=== PATIENT | male | born 1965 | race Caucasian/White ===

== ENCOUNTER → 2018-02-04 07:29 | Outpatient (CLI) | payer MEDICARE | END | disposition home or self-care (01) | LOC: D.CT 07:29 | DX: K63.3 Ulcer of intestine (principal); R10.9 Unspecified abdominal pain ==

== ENCOUNTER → 2018-02-11 11:27 | Outpatient (CLI) | payer MEDICARE | END | disposition home or self-care (01) | LOC: D.CT 11:27 | DX: R93.8 Abnormal findings on diagnostic imaging of other specified body structures (principal); J92.9 Pleural plaque without asbestos; F17.200 Nicotine dependence, unspecified, uncomplicated ==

== ENCOUNTER 2018-03-16 11:11 | Inpatient (IN) | payer MEDICARE ==
[~2018-03-16] VITALS: Ht 182.9 cm; Wt 117.0 kg
--- NOTE | ~2018-03-16 | HP ---
PATIENT: ОЛЬГА IQBAL MEDICAL RECORD: [id number] ACCOUNT: [id number] LOCATION:D.MS [address] : 63 ADMISSION DATE: 03/16/18 PCP: ASAD CARTER MD HISTORY AND PHYSICAL EXAMINATION DATE OF ADMISSION: 03/16/2018 CHIEF COMPLAINT: Fever. HISTORY OF PRESENT ILLNESS: A 52-year-old gentleman states that yesterday he developed some low-grade fever and had chills this morning. He awakened with fever up to 106. He is complaining of having chills and aches. He has had no cough and no congestion. The patient presented to the Emergency Room, where he was felt to have right lower lobe pneumonia. The patient also has rheumatoid arthritis, is on immunosuppressive medications. It was felt the patient should be admitted. PAST MEDICAL HISTORY: Significant in that he has had hypertension and hyperlipidemia. He has had rheumatoid arthritis and chronic low back pain. He has had L4-L5 fusion. He has also had fusion in [place]. He has had hardware removed in 2014. FAMILY HISTORY: Father of lung cancer at 55. Mother had heart disease as well as gout and rheumatoid arthritis. MEDICATIONS: Currently include allopurinol 300 mg one p.o. daily, Bystolic 10 mg one p.o. daily, folic acid one p.o. daily, gabapentin 300 mg t.i.d., Lopid 600 mg p.o. b.i.d., lisinopril 20/12.5 one p.o. daily, methotrexate 2.5 seven every Saturday, omeprazole 20 mg once a day, oxycodone 15 mg one t.i.d. p.r.n., prednisone 5 mg once a day, and vitamin D3 2000 international units once a day. ALLERGIES: He has no known drug allergies. SOCIAL HISTORY: The patient is unemployed, educated through the 12th grade. He is currently . He has been a 2 pack per day smoker since age 31. He denies any ethanol use or abuse. REVIEW OF SYSTEMS: GENERAL: He denies any headache, seizure, or syncope. He denies change in visual or auditory acuity. PULMONARY: He denies any cough, congestion, history of TB, asthma, or bronchitis. CARDIOVASCULAR: He has had no chest pain, palpitation, PND, or orthopnea. GASTROINTESTINAL: No chronic nausea, vomiting, melena, or hematochezia. GENITOURINARY: No urinary frequency or dysuria. PHYSICAL EXAMINATION: VITAL SIGNS: Today, his temperature is 97.9, pulse 95, respirations 18, and blood pressure 129/70. HEENT: Head is normocephalic. No lesions. Ears; TMs are clear. Eyes; pupils are equal, round, and reactive to light. Extraocular movements are intact. Nasal cavity, oral cavity, and oropharynx clear. NECK: Supple. There is no adenopathy. HEART: Regular rate and rhythm without any murmurs, gallops, or rubs. LUNGS: He has some rales in right lower lung. No wheezes. HISTORY AND PHYSICAL [id number] IRONS,ОЛЬГА DELL ABDOMEN: Soft. Bowel sounds positive. No organomegaly. EXTREMITIES: Upper and lower extremities have good strength and good range of motion. LABORATORY DATA AND DIAGNOSTIC DATA: The patient had a chest x-ray today showing patchy opacity in the lung bases, right more severe than left. White count is 13,000, hemoglobin 9.7, hematocrit is 29, MCV is elevated at 109, MCH is 36, and platelet count is 154. Sodium is 138, potassium 3.8, chloride is 103, CO2 is 21, BUN is 14, and creatinine 1.1. C-reactive protein is elevated at 11.2. ProBNP is 462. ASSESSMENT: Febrile illness, felt to be secondary to pneumonia; history of hypertension; hyperlipidemia; and anemia, etiology unknown at the present time. PLAN: The patient will be admitted. We will get serial H&Hs. Blood cultures will be obtained. We will also check for any tick-borne illnesses. He will be started on Rocephin 1 gram q. 24 hours, Zithromax 500 mg IV q. 24 hours, updraft therapy, and Lovenox for DVT precautions. IV hydration. Continue to evaluate. TRANSINT:[id number] Voice Confirmation ID: [id number] DOCUMENT ID: [id number] ASAD CARTER MD at 0657 CC: [id number] DICTATION DATE: 03/16/18 1324 TRANSFER CAR OPERATOR DRIER: 03/16/18 1709 ADM IN [facility] [id number] [place] [address]
--- NOTE | ~2018-03-16 | MORECARE ---
CASE MANAGEMENT DISCHARGE SUMMARY PATIENT: ОЛЬГА IQBAL UNIT: [id number] ADM DATE: 03/16/18 AGE: 52 : 63 SEX: M ROOM/BED: D.2205 AUTHOR: MIGUELDOC PHYSICIAN: REFERRING PHYSICIAN: ASAD CARTER MD DATE OF SERVICE: 03/18/18 Discharge Plan Patient Name: ОЛЬГА IQBAL Facility: [facility]:[place] : 1965 Planned Disposition: Home Anticipated Discharge Date: Discharge Date: Expected LOS: Initial Reviewer: [id number] Initial Review Date: 03/16/2018 Generated: 03/18/18 10:10 am Comments DCP- Discharge Planning Updated by [id number]: Barbara Savage on 03/18/18 8:[address] Patient Name: ОЛЬГА IQBAL Admission Status: ER Accout number: [id number] Admission Date: 03-16-2018 : 1965 Admission Diagnosis: Attending: ASAD CARTER Current LOS: 2 Anticipated DC Date: Planned Disposition: Home Primary Insurance: [facility] MEDICARE SOLUTIONS Discharge Planning Comments: CM MET WITH PATIENT TO ASSESS DISCHARGE PLANNING NEEDS. PATIENT LIVES IN [facility] WITH HIS WHERE HE PLANS TO RETURN TODAY/ HE STATES THAT HE IS INDEPENDENT WITH HIS CARE AT HOME. HE DOES HAVE A WALKER THAT HE USES AT TIMES. HE DENIES ANY HOME HELATH AND DOES NOT WANT ANY AT DISCHARGE. HE STATES HIS HOME IS SAFE TO RETURN CM WILL CONTINUE TO FOLLOW AND ASSIST WITH DC PLANNING NEEDED Clerk General: Barbara Savage DCPIA - Discharge Planning Initial Assessment Updated by [email or web address]: Barbara Savage on 03/18/18 9:06 am * Is the patient Alert and Oriented? Yes * How many steps to enter\exit or inside your home? * PCP EMMA * Pharmacy [facility] * Preadmission Environment Home with Family * ADLs Independent * Equipment Walker * List name and contact numbers for known caregivers / representatives who currently or will assist patient after discharge: ASA () [phone] * Verbal permission to speak to the caregivers and representatives has been obtained from the patient. N/A * Community resources currently utilized None * Additional services required to return to the preadmission environment? No * Can the patient safely return to the preadmission environment? Yes * Has this patient been hospitalized within the prior 30 days at any hospital? No Patient Name: ОЛЬГА IQBAL Page [id number] at 0910 All edits/amendments must be made on the electronic document DICTATION DATE: 03/18/18909 HEAD ATHLETIC TRAINER: MATHEUS 03/18/18909 RPT#: [id number] DC DATE: STATUS: ADM IN [facility] [address] [place] [address] END OF REPORT
--- NOTE | ~2018-03-16 | MORECARE ---
CASE MANAGEMENT DISCHARGE SUMMARY PATIENT: ОЛЬГА IQBAL UNIT: [id number] ADM DATE: 03/16/18 AGE: 52 : 63 SEX: M ROOM/BED: D.2205 AUTHOR: MIGUEL,DOC PHYSICIAN: REFERRING PHYSICIAN: ASAD CARTER MD DATE OF SERVICE: 03/24/18 Discharge Plan Patient Name: ОЛЬГА IQBAL Facility: [facility]:[place] : 1965 Planned Disposition: Home Anticipated Discharge Date: Discharge Date: 03/18/2018 Expected LOS: 0 Initial Reviewer: [email or web address] Initial Review Date: 03/16/2018 Generated: 03/24/18 11:11 am Comments DCP- Discharge Planning Updated by [email or web address]: Barbara Savage on 03/18/18 8:[address] Patient Name: ОЛЬГА IQBAL Admission Status: ER Accout number: [id number] Admission Date: 03-16-2018 : 1965 Admission Diagnosis: Attending: ASAD CARTER Current LOS: 2 Anticipated DC Date: Planned Disposition: Home Primary Insurance: [facility] MEDICARE SOLUTIONS Discharge Planning Comments: CM MET WITH PATIENT TO ASSESS DISCHARGE PLANNING NEEDS. PATIENT LIVES IN [facility] WITH HIS WHERE HE PLANS TO RETURN TODAY/ HE STATES THAT HE IS INDEPENDENT WITH HIS CARE AT HOME. HE DOES HAVE A WALKER THAT HE USES AT TIMES. HE DENIES ANY HOME HELATH AND DOES NOT WANT ANY AT DISCHARGE. HE STATES HIS HOME IS SAFE TO RETURN CM WILL CONTINUE TO FOLLOW AND ASSIST WITH DC PLANNING NEEDED Helminthology Teacher: Barbara Savage DCPIA - Discharge Planning Initial Assessment Updated by [email or web address]: Barbara Savage on 03/18/18 9:06 am * Is the patient Alert and Oriented? Yes * How many steps to enter\exit or inside your home? * PCP EMMA * Pharmacy [facility] * Preadmission Environment Home with Family * ADLs Independent * Equipment Walker * List name and contact numbers for known caregivers / representatives who currently or will assist patient after discharge: ASA () [phone] * Verbal permission to speak to the caregivers and representatives has been obtained from the patient. N/A * Community resources currently utilized None * Additional services required to return to the preadmission environment? No * Can the patient safely return to the preadmission environment? Yes * Has this patient been hospitalized within the prior 30 days at any hospital? No Last DP export: 03/18/18 8:10 Patient Name: ОЛЬГА IQBAL Page [phone] at 1011 All edits/amendments must be made on the electronic document DICTATION DATE: 03/24/18 1011 BUCKLE SORTER: MATHEUS 03/24/18 1011 RPT#: [id number] DC DATE:03/18/18 STATUS: DIS IN [facility] [address] [place] [address] END OF REPORT
[2018-03-16] MEDS ORDERED: GEMFIBROZIL600 MG (11:15)
[2018-03-16] MEDS ORDERED: BYSTOLIC10 MG PO (11:15)
[2018-03-16] MEDS ORDERED: PRINZIDE 20/12.1 TA1 PO ×2 (11:15→14:03)
[2018-03-16] MEDS ORDERED: OMEPRAZOLE20 M1 PO (11:15)
[2018-03-16] MEDS ORDERED: VITAMIN D250000 UNIT PO (11:16)
[2018-03-16] MEDS ORDERED: NEURONTIN 300300 MG PO (11:16)
[2018-03-16] MEDS ORDERED: ZYLOPRIM300 MG PO (11:16)
[2018-03-16] MEDS ORDERED: OXYCONTIN15 MG PO (11:17)
[2018-03-16 11:41] LABS: BASOPHILS 0.1 % (0-2); EOSINOPHILS 0.2 % (0-7); HEMATOCRIT 29.1 % (42.0-54.0); HEMOGLOBIN 9.7 g/dL (13.5-17.5); IMMATURE GRANULOCYTES 0.8 % (0-5); LYMPHOCYTES 4.8 % (15-50); MCH 36.3 pg (26.0-34.0); MCHC 33.3 g/dL (31.0-37.0); MEAN PLATELET VOLUME 10.2 fL (7.4-10.4); MONOCYTES 12.7 % (2-11); NEUTROPHILS 81.4 % (40-80); PLATELET COUNT 154 10x3/uL (130-400); RBC 2.67 10x6/uL (4.20-6.10); RDW 16.5 % (11.5-14.5)
[2018-03-16 12:07] LABS: ALBUMIN 3.5 g/dL (3.4-5.0); ALKALINE PHOSPHATASE 47 U/L (46-116); ALT (SGPT) 15 U/L (10-68); BILIRUBIN - TOTAL 0.91 mg/dL (0.2-1.3); CALC OSMOLALITY 276 mosm/kg (275-300); CALCIUM 8.8 mg/dL (8.5-10.1); CARBON DIOXIDE 21.1 mmol/L (21.0-32.0); CHLORIDE - SERUM 103 mmol/L (98-107); CREATININE - SERUM 1.1 mg/dL (0.6-1.3); GLUCOSE 103 mg/dL (74-106); POTASSIUM - SERUM 3.8 mmol/L (3.5-5.1); PROTEIN - SERUM 6.7 g/dL (6.4-8.2); SODIUM 138 mmol/L (136-145); UREA NITROGEN 14 mg/dL (7-18); eGFR NON AFRICAN AMERICAN 74 mL/min (90-120)
[2018-03-16 12:14] LABS: C-REACTIVE PROTEIN 11.2 mg/dL (0.0-0.9); CREATINE KINASE 32 UL (21-232); LIPASE 167 U/L (73-393); PRO BNP 462 pg/mL (0-125); TROPONIN-I < 0.017 ng/mL (0.000-0.060)
[2018-03-16 12:15] VITALS: BP 122/88
[2018-03-16 12:39] LABS: APPEARANCE CLEAR (CLEAR); BILIRUBIN NEGATIVE (NEGATIVE); COLOR STRAW (YELLOW); GLUCOSE NEGATIVE (NEGATIVE); KETONE NEGATIVE (NEGATIVE); NITRITE NEGATIVE (NEGATIVE); PROTEIN NEGATIVE (NEGATIVE); SPECIFIC GRAVITY 1.005 (1.005-1.020); UROBILINOGEN NORMAL (NORMAL)
[2018-03-16] MEDS ORDERED: BYSTOLIC5 MG PO (13:57)
[2018-03-16] MEDS ORDERED: HYDROCHLOROTH12.5 M1 PO (14:03)
[2018-03-16] MEDS ORDERED: FOLATE0.4 MG PO (14:07)
[2018-03-16] MEDS ORDERED: PREDNISONE5 MG PO (14:07)
[2018-03-16 14:10] VITALS: BP 132/73; BMI 35.0
[2018-03-16 14:13] LABS: % SATURATION 3 % (15-55); IRON 11 ug/dl (35-150); TOTAL IRON BIND CAPACITY 341 ug/dl (260-445); UNSAT IRON BIND CAPACITY 330 ug/dl (150-375)
[2018-03-16 15:23] VITALS: BP 132/73
[2018-03-16 19:56] VITALS: BP 112/60
[2018-03-17] VITALS: BP 104/64
[2018-03-17 04:00] VITALS: BP 104/64
[2018-03-17 04:09] LABS: BASOPHILS 0 % (0-2); EOSINOPHILS 0.1 % (0-7); HEMATOCRIT 25.3 % (42.0-54.0); HEMOGLOBIN 8.3 g/dL (13.5-17.5); IMMATURE GRANULOCYTES 0.8 % (0-5); MCH 35.9 pg (26.0-34.0); MCHC 32.8 g/dL (31.0-37.0); MCV 109.5 fL (80.0-100.0); MEAN PLATELET VOLUME 9.9 fL (7.4-10.4); MONOCYTES 10.2 % (2-11); NEUTROPHILS 76.9 % (40-80); PLATELET COUNT 135 10x3/uL (130-400); RBC 2.31 10x6/uL (4.20-6.10); RDW 16.3 % (11.5-14.5)
[2018-03-17 04:10] LABS: WBC 7.8 10x3/uL (4.8-10.8)
[2018-03-17 04:18] LABS: ANION GAP 16.2 mmol/L (8-16); CALCIUM 8.3 mg/dL (8.5-10.1); CARBON DIOXIDE 22.6 mmol/L (21.0-32.0); CREATININE - SERUM 1.1 mg/dL (0.6-1.3); POTASSIUM - SERUM 3.8 mmol/L (3.5-5.1)
[2018-03-17 08:52] VITALS: BP 132/69
[2018-03-17 12:32] VITALS: BP 139/82
[2018-03-17 12:43] VITALS: Ht 182.9 cm; Wt 117.0 kg
[2018-03-17 16:39] VITALS: BP 125/71
[2018-03-17 21:25] VITALS: BP 145/80
[2018-03-18 04:36] VITALS: BP 113/46
[2018-03-18 04:47] LABS: BASOPHILS 0.2 % (0-2); EOSINOPHILS 2.7 % (0-7); HEMATOCRIT 29.6 % (42.0-54.0); IMMATURE GRANULOCYTES 1.3 % (0-5); LYMPHOCYTES 26.6 % (15-50); MCH 35.6 pg (26.0-34.0); MCHC 33.8 g/dL (31.0-37.0); MEAN PLATELET VOLUME 10.2 fL (7.4-10.4); MONOCYTES 5.2 % (2-11); RDW 17.7 % (11.5-14.5)
[2018-03-18 04:56] LABS: MCV 105.3 fL (80.0-100.0); PLATELET COUNT 168 10x3/uL (130-400); RBC 2.81 10x6/uL (4.20-6.10); WBC 4.8 10x3/uL (4.8-10.8)
[2018-03-18 04:58] LABS: CALC OSMOLALITY 278 mosm/kg (275-300); CALCIUM 8.4 mg/dL (8.5-10.1); CARBON DIOXIDE 27.7 mmol/L (21.0-32.0); CHLORIDE - SERUM 105 mmol/L (98-107); GLUCOSE 95 mg/dL (74-106); POTASSIUM - SERUM 3.8 mmol/L (3.5-5.1); SODIUM 140 mmol/L (136-145); UREA NITROGEN 13 mg/dL (7-18); eGFR NON AFRICAN AMERICAN 83 mL/min (90-120)
[2018-03-18] MEDS ORDERED: FERROUS SULFAT325 MG PO (06:56)
[2018-03-18] MEDS ORDERED: LEVAQUIN750 MG PO (06:56)
[2018-03-18] MEDS ORDERED: DOXYCYCLINE HY100 M2 PO (06:56)
[2018-03-18 08:23] LABS: FOLATE (FOLIC ACID) - SERUM >20.0 ng/mL (>3.0)
[2018-03-18 08:26] VITALS: BP 124/77
[2018-03-19 14:23] LABS: EHRLICHIA CHAFF IGG Negative (Neg:<1:64); EHRLICHIA CHAFF IGM Negative (Neg:<1:20); HGE IGG TITER Negative (Neg:<1:64); HGE IGM TITER Negative (Neg:<1:20)
[2018-03-20 16:13] LABS: RMSF IGM 0.19 index (0.00-0.89)
[2018-03-21 09:18] LABS: F. TULARENSIS - IGG Negative (()); F. TULARENSIS - IGM Negative (())
== END 2018-03-18 09:22 | disposition home or self-care (01) | DRG 195 ==
LOC: D.ER 11:11 → D.EDHOLD 12:44 → D.MS 12:44
PROVIDERS: Family Medicine
DX: J18.9 Pneumonia, unspecified organism (principal); I10 Essential (primary) hypertension; K21.9 Gastro-esophageal reflux disease without esophagitis; M06.9 Rheumatoid arthritis, unspecified; D50.9 Iron deficiency anemia, unspecified; F17.210 Nicotine dependence, cigarettes, uncomplicated

== ENCOUNTER 2018-08-29 21:06 | Inpatient (IN) | payer MEDICARE ==
[~2018-08-29] VITALS: Ht 182.9 cm; Wt 122.7 kg
[~2018-08-29 21:06] MED LIST: BYSTOLIC10 MG PO; BYSTOLIC5 MG PO; DOXYCYCLINE HY100 M2 PO; FERROUS SULFAT325 MG PO; FOLATE0.4 MG PO; GEMFIBROZIL600 MG PO; HYDROCHLOROTH12.5 M1 PO; LEVAQUIN750 MG PO; NEURONTIN 300300 MG PO; OMEPRAZOLE20 M1 PO; OXYCONTIN15 MG PO; PREDNISONE5 MG PO; PRINZIDE 20/12.1 TA1 PO; VITAMIN D250000 UNIT PO; ZYLOPRIM300 MG PO
[2018-08-29] MEDS ORDERED: CRESTOR10 MG PO (21:15)
[2018-08-29 21:40] LABS: BASOPHILS 0.1 % (0-2); EOSINOPHILS 0.8 % (0-7); HEMOGLOBIN 9.6 g/dL (13.5-17.5); IMMATURE GRANULOCYTES 0.9 % (0-5); LYMPHOCYTES 7.3 % (15-50); MCH 30.5 pg (26.0-34.0); MCHC 34.3 g/dL (31.0-37.0); MCV 88.9 fL (80.0-100.0); MONOCYTES 10.8 % (2-11); NEUTROPHILS 80.1 % (40-80); PLATELET COUNT 198 10x3/uL (130-400); RBC 3.15 10x6/uL (4.20-6.10); RDW 15.7 % (11.5-14.5); WBC 12.9 10x3/uL (4.8-10.8)
[2018-08-29 22:00] VITALS: BP 79/40
[2018-08-29 22:09] LABS: ALBUMIN 3.2 g/dL (3.4-5.0); ALKALINE PHOSPHATASE 51 U/L (46-116); ALT (SGPT) 12 U/L (10-68); AMYLASE - SERUM 66 U/L (25-115); BILIRUBIN - TOTAL 0.59 mg/dL (0.2-1.3); CALC OSMOLALITY 277 mosm/kg (275-300); CALCIUM 8.7 mg/dL (8.5-10.1); CARBON DIOXIDE 14.4 mmol/L (21.0-32.0); CHLORIDE - SERUM 96 mmol/L (98-107); CREATININE - SERUM 5.7 mg/dL (0.6-1.3); GLUCOSE 111 mg/dL (74-106); LIPASE 283 U/L (73-393); POTASSIUM - SERUM 4.4 mmol/L (3.5-5.1); PROTEIN - SERUM 7.6 g/dL (6.4-8.2); SODIUM 128 mmol/L (136-145); UREA NITROGEN 68 mg/dL (7-18); eGFR NON AFRICAN AMERICAN 11 mL/min (90-120)
[2018-08-29 22:15] VITALS: BP 85/46
[2018-08-29 22:16] LABS: TROPONIN-I < 0.017 ng/mL (0.000-0.060)
[2018-08-29 22:30] VITALS: BP 95/49
--- NOTE | 2018-08-29 22:30 | NUR ---
URINE SENT TO LAB
--- NOTE | 2018-08-29 22:37 | NUR ---
PT TO RADIOLOGY.
[2018-08-29 22:39] LABS: APPEARANCE CLEAR (CLEAR); BILIRUBIN NEGATIVE (NEGATIVE); COLOR YELLOW (YELLOW); GLUCOSE NEGATIVE (NEGATIVE); KETONE NEGATIVE (NEGATIVE); NITRITE NEGATIVE (NEGATIVE); PROTEIN TRACE mg/dL (NEGATIVE); UROBILINOGEN NORMAL (NORMAL)
--- NOTE | 2018-08-29 22:51 | NUR ---
PT RETURNED FROM RADIOLOGY.
--- NOTE | 2018-08-29 23:03 | NUR ---
PT RESTING EYES CLOSED, RR EVEN AND UNLABORED, VSS. FAMILY AT BEDSIDE. WILL CONTINUE TO MONITOR.
[2018-08-29 23:10] VITALS: BP 97/46
[2018-08-30] VITALS: BP 90/44
--- NOTE | 2018-08-30 01:32 | NUR ---
RECEIVED FROM ER, PT IS A&O X4, UPDATED MEDS, PT STATES HE TAKE B12 INJECTIONS AND HUMIRA INJECTIONS, UNABLE TO FIND, AT BEDSIDE, BED IS LOW, SRX2, CALL LIGHT IN REACH, WILL CONTINUE PLAN OF CARE
[2018-08-30] MEDS ORDERED: HUMIRA (01:53)
[2018-08-30] MEDS ORDERED: B-12 (01:54)
--- NOTE | 2018-08-30 02:39 | NUR ---
I have reviewed this patient and I concur with the Shift Assessment completed by the Licensed Practical Nurse today this shift.
[2018-08-30 02:46] VITALS: BP 138/72; BP 95/59; BMI 34.0; BMI 35.3
[2018-08-30 04:00] VITALS: BP 91/48
--- NOTE | 2018-08-30 07:00 | NUR ---
RECEIVED REPORT. ASSUMED CARE OF PATIENT. CALL LIGHT WITHIN REACH. PATIENT ALERT/ORIETNED. IV FLUIDS INFUSING TO LEFT FOREARM ORDERED. RESP EVEN AND UNLABORED. PATIENT COMPLAINS OF CHRONIC BACK PAIN. NO DISTRESS. PATIENT AT BEDSIDE.
--- NOTE | 2018-08-30 07:49 | NUR ---
MEDICATED FOR BACK PAIN AT THIS TIME. PATIENT HAS HAD 3 BACK SURGERIES AND LYING IN THIS BED IS HURTING HIM. CALL LIGHT WITHIN REACH. INSTRUCTED TO CALL, USE CALL LIGHT TO PREVENT FALLS OR INJURIES. VERBALIZED UNDERSTANDING. NO DISTRESS. IV FLUIDS INFUSING AT 125
[2018-08-30 09:25] LABS: BASOPHILS 0.1 % (0-2); HEMATOCRIT 23.1 % (42.0-54.0); HEMOGLOBIN 7.9 g/dL (13.5-17.5); IMMATURE GRANULOCYTES 0.7 % (0-5); LYMPHOCYTES 8.6 % (15-50); MCH 30.5 pg (26.0-34.0); MCHC 34.2 g/dL (31.0-37.0); MCV 89.2 fL (80.0-100.0); MEAN PLATELET VOLUME 9.1 fL (7.4-10.4); MONOCYTES 7.6 % (2-11); PLATELET COUNT 187 10x3/uL (130-400); RBC 2.59 10x6/uL (4.20-6.10); RDW 15.8 % (11.5-14.5)
[2018-08-30 09:29] LABS: WBC 9.5 10x3/uL (4.8-10.8)
[2018-08-30 09:39] LABS: ANION GAP 20.5 mmol/L (8-16); CALCIUM 7.8 mg/dL (8.5-10.1); CARBON DIOXIDE 14.3 mmol/L (21.0-32.0); POTASSIUM - SERUM 3.8 mmol/L (3.5-5.1)
[2018-08-30 09:51] VITALS: BP 82/49
--- NOTE | 2018-08-30 10:19 | NUR ---
SCDS NOT APPLIED PATIENT IS VERY FREQUENTLY GETTING OOB TO USE THE RESTROOM. URINAL PROVIDED AND AT BEDSIDE. PATIENT HAS DIARRHEA.
--- NOTE | 2018-08-30 11:57 | NUR ---
FRESH ICE WATER AND JUICE PROVIDED AT THIS TIME. PATIENT SITTING UP IN BED. NOON MEAL BEING SERVED AT THIS TIME. PATIENT AT BEDSIDE. NO DISTRESS.
[2018-08-30 13:11] VITALS: BP 89/50
--- NOTE | 2018-08-30 15:35 | NUR ---
FRESH ICE WATER AND JUICE PROVIDED. PATIENTS FAMILY AT BEDSIDE. STOOL SAMPLE SUBMITTED TO LAB. PATIENT URINE OUTPUT IS INCREASING. CALL LIGHT WITHIN REACH. NO DISTRESS.
--- NOTE | 2018-08-30 17:39 | NUR ---
MEDICATED FOR PAIN AT THIS TIME. NO DISTRESS. CONSUMED PM MEAL. CALL LIGHT WITHIN REACH. INSTRUCTED PATIENT TO CALL BEFORE GETTING OOB. PATIENTS AT BEDSIDE.
[2018-08-30 17:40] VITALS: BP 90/83
--- NOTE | 2018-08-30 19:54 | NUR ---
RECIEVED LAYING IN BED WITH EYES OPEN AND TV ON. SPOUSE AT BEDSIDE. ALERT AND ORIENTED X4. UP AD MAGDIEL TO TOILET. STATES APPETITE GOOD AND ATE 100% OF ALL MEALS TODAY. IV TO LEFT FA WITH NS @ 125 INFUSING. NO REDNESS OR SWELLING TO SITE. SCABS TO RIGHT THUMB AND TOP OF RIGHT HAND WITH NO REDNESS OR DRAINAGE. DENIES ANY NEEDS AT THIS TIME.
[2018-08-31 00:20] VITALS: BP 109/65
[2018-08-31 00:29] VITALS: BP 94/50
[2018-08-31 04:53] LABS: BASOPHILS 0.1 % (0-2); EOSINOPHILS 2.7 % (0-7); HEMATOCRIT 23.1 % (42.0-54.0); HEMOGLOBIN 7.8 g/dL (13.5-17.5); MCH 30.2 pg (26.0-34.0); MCHC 33.8 g/dL (31.0-37.0); MCV 89.5 fL (80.0-100.0); MEAN PLATELET VOLUME 9.1 fL (7.4-10.4); MONOCYTES 7.7 % (2-11); NEUTROPHILS 74.5 % (40-80); PLATELET COUNT 203 10x3/uL (130-400); RBC 2.58 10x6/uL (4.20-6.10); RDW 15.6 % (11.5-14.5)
[2018-08-31 05:16] LABS: BILIRUBIN - TOTAL 0.19 mg/dL (0.2-1.3); CALCIUM 7.8 mg/dL (8.5-10.1); CARBON DIOXIDE 15.2 mmol/L (21.0-32.0); MAGNESIUM - SERUM 1.1 mg/dL (1.8-2.4); PHOSPHOROUS 2.5 mg/dL (2.5-4.9); URIC ACID 6.6 mg/dL (2.6-7.2)
[2018-08-31 05:21] LABS: ALBUMIN 2.3 g/dL (3.4-5.0); ANION GAP 17.8 mmol/L (8-16); CREATININE - SERUM 2.5 mg/dL (0.6-1.3)
[2018-08-31 05:56] VITALS: BP 91/52
--- NOTE | 2018-08-31 07:00 | NUR ---
RECEIVED REPORT. ASSUMED CARE OF PATIENT. CALL LIGHT WITHIN REACH. PATIENT LYING IN BED WITH EYES CLOSED. PATIENT AT BEDSIDE. NO DISTRESS. RESP EVEN AND UNLABORED.
--- NOTE | 2018-08-31 07:45 | NUR ---
COFFEE, JUICE AND WATER PROVIDED UPON REQUEST. SITTING TO SIDE OF BED. CALL LIGHT WITHIN REACH. QUESTIONED PATIENT ABOUT BLOOD TRANSFUSIONS. PATIENT STATED HE DID HAVE A TRANSFUSION IN FEBRUARY WHEN HE WAS ADMITTED THEN. PATIENT TAKES RA MEDICATION THAT MESSES WITH HIS BLOOD COUNT.
[2018-08-31 09:13] VITALS: BP 115/72
[2018-08-31 09:29] LABS: URIC ACID 6.6 mg/dL (2.6-7.2)
--- NOTE | 2018-08-31 10:06 | NUR ---
MEDICATED FOR PAIN AT THIS TIME.
[2018-08-31 10:42] LABS: % SATURATION 5 % (15-55); IRON 21 ug/dl (35-150); UNSAT IRON BIND CAPACITY 339 ug/dl (150-375)
[2018-08-31 10:43] LABS: TOTAL IRON BIND CAPACITY 360 ug/dl (260-445)
--- NOTE | 2018-08-31 11:34 | NUR ---
K+ SUPPLEMENT GIVEN AT THERE WAS NO CHANGE IN POTASSIUM LEVEL AFTER 0620 DOSE ADMINISTERED THIS AM.
[2018-08-31 13:05] VITALS: BP 119/79
--- NOTE | 2018-08-31 15:40 | NUR ---
MEDICATED FOR PAIN. PREMEDICATED FOR BLOOD TRANSFUSION. NO DISTRESS.
[2018-08-31 15:41] LABS: MAGNESIUM - SERUM 2.3 mg/dL (1.8-2.4)
[2018-08-31 15:51] LABS: POTASSIUM - SERUM 3.3 mmol/L (3.5-5.1)
--- NOTE | 2018-08-31 15:55 | NUR ---
IST UNIT PRBC'S INITATED AT THIS TIME. BP 125/73. PATIENT PREMEDICATED WITH BENADRYL AND TYLENOL ORDERED. CALL LIGHT WITHIN REACH. NO DISTRESS.
--- NOTE | 2018-08-31 16:31 | NUR ---
PATIENT TOLERATED BLOOD TRANSFUSION WELL. BP 124/80. PATIENT WITH FAMILY AT BEDSIDE. CALL LIGHT WITHIN REACH. NO DISTRESS.
--- NOTE | 2018-08-31 18:35 | NUR ---
1ST UNIT OF PRBC'S COMPLETE AT THIS TIME.
--- NOTE | 2018-08-31 18:46 | NUR ---
1ST UNIT PRBC'S ADMINISTERED. LASIX GIVEN AT THIS TIME AND WILL START 2ND UNIT OF PRBC'S
--- NOTE | 2018-08-31 19:10 | NUR ---
2 UNIT OF PRBC'S STARTED AT 1900. TOLERATING TRANSFUSION WELL. NO DISTRESS. CALL LIGHT WITHIN REACH.
--- NOTE | 2018-08-31 19:37 | NUR ---
RECIEVED UP IN BED ATTEMPTING TO EAT DESSERT. FOOD ON CLOTHING AND BED. THIS NURSE ASSIST WITH REST OF MEAL. PT CHOCKING WHEN SWALLOWING.WILL NOTIFY MD. LINENS AND GOWN CHANGED. DENIES ANY OTHER NEEDS. WILL CONT. POC.
--- NOTE | 2018-08-31 19:59 | NUR ---
RECIEVED RESTING IN BED WITH EYES OPEN AND TV ON. SPOUSE AT BEDSIDE. PRBC INFUSING AT THIS TIME. REPORTED SECOND UNIT. NO ADVERSE SIDE EFFECTS OBSERVED. ALERT AND ORIENTED X4. DENIES ANY PAIN OR NEEDS. WILL CONT. POC.
[2018-08-31 20:38] VITALS: BP 133/75
--- NOTE | 2018-08-31 23:02 | NUR ---
COMPLETED BLOOD TRANSFUSION WITH NO ADVERSE SIDE EFFECTS. V/S,S 98.1, 86, 18, 127/77.
[2018-09-01] VITALS (7 sets, daily range): BP systolic 114–147; BP diastolic 71–88; Ht 182.9 cm; Wt 122.7 kg
--- NOTE | 2018-09-01 02:32 | NUR ---
REFUSES TO WEAR TELEMETRY.
[2018-09-01 05:36] LABS: BASOPHILS 0.2 % (0-2); EOSINOPHILS 2.7 % (0-7); IMMATURE GRANULOCYTES 0.5 % (0-5); LYMPHOCYTES 21.2 % (15-50); MCH 29.9 pg (26.0-34.0); MCHC 34.3 g/dL (31.0-37.0); MONOCYTES 8.2 % (2-11); NEUTROPHILS 67.2 % (40-80); PLATELET COUNT 184 10x3/uL (130-400); RDW 14.9 % (11.5-14.5); WBC 5.5 10x3/uL (4.8-10.8)
[2018-09-01 05:38] LABS: HEMOGLOBIN 9.6 g/dL (13.5-17.5); MCV 87.2 fL (80.0-100.0); RBC 3.21 10x6/uL (4.20-6.10)
[2018-09-01 06:00] LABS: ALBUMIN 2.4 g/dL (3.4-5.0); BILIRUBIN - TOTAL 0.37 mg/dL (0.2-1.3); CALCIUM 7.8 mg/dL (8.5-10.1); PROTEIN - SERUM 6.2 g/dL (6.4-8.2)
[2018-09-01 06:29] LABS: ANION GAP 15.7 mmol/L (8-16); CARBON DIOXIDE 20.2 mmol/L (21.0-32.0); CREATININE - SERUM 1.6 mg/dL (0.6-1.3); MAGNESIUM - SERUM 1.5 mg/dL (1.8-2.4); PHOSPHOROUS 3.3 mg/dL (2.5-4.9)
[2018-09-01 06:31] LABS: POTASSIUM - SERUM 2.9 mmol/L (3.5-5.1)
--- NOTE | 2018-09-01 07:27 | NUR ---
AM ROUNDS PT RESTING COMFORTABLY IN BED. A/O X4, RESP EVEN AND NONLABORED ON RA. LT FA IV INFUSING PLASMALITE AT 125CC/HR. PT DENIES ANY NEEDS AT THIS TIME. CALL LIGHT IN REACH, AT BEDSIDE, NAD NOTED, WILL CONTINUE PLAN OF CARE.
--- NOTE | 2018-09-01 10:31 | NUR ---
NEW 20G IV STARTED TO RT WRIST X1 STICK, PT TOLERATED WELL. 2MG OF MORPHINE GIVEN FOR PAIN LEVEL OF8/10. IV FLUIDS STARTED BACK UP. PT DENIES ANY NEEDS AT THIS TIME. CALL LIGHT IN REACH, AT BEDSIDE, NAD NOTED, WILL CONTINUE TO MONITOR.
[2018-09-01 12:16] LABS: CALCIUM 8.5 mg/dL (8.5-10.1); CARBON DIOXIDE 23.1 mmol/L (21.0-32.0); CREATININE - SERUM 1.6 mg/dL (0.6-1.3); MAGNESIUM - SERUM 1.5 mg/dL (1.8-2.4); PHOSPHOROUS 2.5 mg/dL (2.5-4.9); POTASSIUM - SERUM 3.1 mmol/L (3.5-5.1)
--- NOTE | 2018-09-01 14:27 | NUR ---
2MG OF MORPHINE GIVEN FOR PAIN LEVEL OF 8/10. ALSO GAVE 400MG OF MAG AND 40MEQ OF K. PT DENIES ANY OTHER NEEDS AT THIS TIME. CALL LIGHT IN REACH, FAMLY AT BEDSIDE, NAD NOTED, WILL CONTINUE TO MONITOR.
--- NOTE | 2018-09-01 19:24 | NUR ---
RECIEVED UP IN BED WITH EYES OPEN AND TV ON. SPOUSE AT BEDSIDE. ALERT AND ORIENTED X4. IV TO RIGHT FA WITH PLASMOLYTE INFUSING AT 125CC/HR. DSG INTACT AND NO REDNESS OR SWELLING TO SITE. UP AD MAGDIEL TO B/R. DENIES ANY NEEDS AT THIS TIME.
[2018-09-02 03:39] VITALS: BP 134/93
--- NOTE | 2018-09-02 03:50 | NUR ---
IV INFILTRATED AND PT REFUSES TO HAVE IT RESTARTED. STATED " I'M LEAVING NEIL ORROW".
[2018-09-02 07:24] LABS: BASOPHILS 0.5 % (0-2); EOSINOPHILS 5.1 % (0-7); HEMATOCRIT 30.6 % (42.0-54.0); HEMOGLOBIN 10.4 g/dL (13.5-17.5); LYMPHOCYTES 25.2 % (15-50); MCH 30.1 pg (26.0-34.0); MCV 88.7 fL (80.0-100.0); MEAN PLATELET VOLUME 8.8 fL (7.4-10.4); MONOCYTES 13.2 % (2-11); PLATELET COUNT 190 10x3/uL (130-400); RBC 3.45 10x6/uL (4.20-6.10); RDW 14.8 % (11.5-14.5)
[2018-09-02 07:25] LABS: WBC 4.1 10x3/uL (4.8-10.8)
[2018-09-02 07:52] LABS: ALBUMIN 2.5 g/dL (3.4-5.0); BILIRUBIN - TOTAL 0.56 mg/dL (0.2-1.3); CALCIUM 8.5 mg/dL (8.5-10.1); CREATININE - SERUM 1.3 mg/dL (0.6-1.3); MAGNESIUM - SERUM 1.2 mg/dL (1.8-2.4); PHOSPHOROUS 2.1 mg/dL (2.5-4.9); PROTEIN - SERUM 6.5 g/dL (6.4-8.2)
[2018-09-02 08:36] LABS: ANION GAP 13.7 mmol/L (8-16); POTASSIUM - SERUM 3.7 mmol/L (3.5-5.1)
[2018-09-02 08:54] VITALS: BP 129/83
[2018-09-02 09:17] LABS: FOLATE (FOLIC ACID) - SERUM 17.2 ng/mL (>3.0)
[2018-09-02] MEDS ORDERED: MAG-OX 400 MG400 MG PO (09:52)
[2018-09-02] MEDS ORDERED: LEVOFLOXACIN500 MG PO (09:52)
--- NOTE | 2018-09-02 13:07 | NUR ---
DISCHARGE PAPERS REVIEWED WITH PT AND ALL QUESTIONS ANSWERED. PIV INFILTRATED LAST NIGHT AND WAS REMOVED. PT TAKEN TO FRONT OF HOSPITAL AND LEFT WITH FRIENDS.
--- NOTE | 2018-09-02 16:15 | MORECARE ---
CASE MANAGEMENT DISCHARGE SUMMARY PATIENT: ОЛЬГА IQBAL UNIT: [id number] ADM DATE: 08/30/18 AGE: 52 : 63 SEX: M ROOM/BED: D.2110 AUTHOR: MIGUELDOC PHYSICIAN: REFERRING PHYSICIAN: ALICE ARMSTRONG DO DATE OF SERVICE: 09/02/18 Discharge Plan Patient Name: ОЛЬГА IQBAL Facility: [facility]:Home : 1965 Planned Disposition: Home Anticipated Discharge Date: 09/02/18 Discharge Date: 09/02/2018 Expected LOS: 3 Initial Reviewer: [id number] Initial Review Date: 09/02/2018 Generated: 09/02/18 5:15 pm Comments DCP- Discharge Planning Updated by [id number]: Carlos Enrique Romero on 09/02/18 3:[address] Patient Name: ОЛЬГА IQBAL Admission Status: ER Accout number: [id number] Admission Date: 08-30-2018 : 1965 Admission Diagnosis:NAUSEA WITH VOMITING, UNSPECIFIED Attending: ALICE ARMSTRONG Current LOS: 3 Anticipated DC Date: 09-02-2018 Planned Disposition: Home Primary Insurance: [facility] MEDICARE SOLUTIONS Discharge Planning Comments: CM MET WITH PT IN ROOM TO DISCUSS DISCHARGE PLANNING AND NEEDS. PT REPORTS LIVING AT HOME INDEPENDENTLY WITH SPOUSE. PT HAS CPAP AND WALKER FROM [facility]. PT HAS NO OUTSIDE SERVICES ASSISTING IN THE HOME. CM DISCUSSED AVAILABILITY OF HOME HEALTH, REHAB SERVICES AND MEDICAL EQUIPMENT. PT DENIES DISCHARGE NEEDS, REPORTS HIS WILL PICK HIM UP FOR DISCHARGE HOME. IMPORTANT MESSAGE FROM MEDICARE PROVIDED AND EXPLAINED. Termite Technician: Carlos Enrique Romero DCPIA - Discharge Planning Initial Assessment Updated by [id number]: Carlos Enrique Romero on 09/02/18 4:11 pm * Is the patient Alert and Oriented? Yes * How many steps to enter\exit or inside your home? * PCP DR. CARTER * Pharmacy [facility] * Preadmission Environment Home with Family * ADLs Independent * Equipment CPAP Walker * Other Equipment [facility] - PROVIDER * List name and contact numbers for known caregivers / representatives who currently or will assist patient after discharge: ASA IQBAL, SPOUSE, * Verbal permission to speak to the caregivers and representatives has been obtained from the patient. Yes * Community resources currently utilized None * Please name any agencies selected above. NONE * Additional services required to return to the preadmission environment? No * Can the patient safely return to the preadmission environment? Yes * Has this patient been hospitalized within the prior 30 days at any hospital? No Coverage Notice Reviewer: [id number] Veronica Monaco [place] Notice Issued Date-Time: 09/02/2018 9:45 Notice Type: IM Discharge Notice Notice Delivered To: Patient Relationship to Patient: Employment Instructional Associate Name: Delivery Method: HAND - Hand Delivered Marie Days: Prior Verbal Notification: Recipient Understood Notice: Yes Recipient Signature: Yes Med Rec Note Co-signed by Attending: Coverage Notice Comment: Patient Name: ОЬЛГА IQBAL Page [phone] at 1615 All edits/amendments must be made on the electronic document DICTATION DATE: 09/02/18 1615 HOG OPERATOR: MATHEUS 09/02/18 1615 RPT#: [id number] DC DATE:09/02/18 STATUS: DIS IN [facility] [address] [place] [address] END OF REPORT
[2018-09-04 15:15] LABS: OVA + PARASITE EXAM Final report (())
== END 2018-09-02 13:09 | disposition home or self-care (01) | DRG 391 ==
LOC: D.ER 21:06 → D.M2 08-30 00:18 → D.EDHOLD 08-30 00:18 → D.M2 08-30 00:34
PROVIDERS: Family Medicine; Internal Medicine Nephrology; ADMIT Family Medicine; ATTEND Family Medicine
DX: K57.92 Diverticulitis of intestine, part unspecified, without perforation or abscess without bleeding (principal); N17.0 Acute kidney failure with tubular necrosis; E87.2 Acidosis; E87.1 Hypo-osmolality and hyponatremia; I10 Essential (primary) hypertension; I95.9 Hypotension, unspecified; K21.9 Gastro-esophageal reflux disease without esophagitis; M06.9 Rheumatoid arthritis, unspecified; G47.33 Obstructive sleep apnea (adult) (pediatric); E83.42 Hypomagnesemia; E87.6 Hypokalemia; E86.9 Volume depletion, unspecified; D50.9 Iron deficiency anemia, unspecified; Z87.891 Personal history of nicotine dependence

== ENCOUNTER 2019-01-14 12:22 | Outpatient (CLI) | payer MEDICARE ==
[~2019-01-14] VITALS: Ht 182.9 cm; Wt 114.1 kg
[~2019-01-14 12:22] MED LIST changes: +B-12; +CRESTOR10 MG PO; +HUMIRA; +LEVOFLOXACIN500 MG PO; +MAG-OX 400 MG400 MG PO
[2019-01-14 14:59] VITALS: BP 90/61; Ht 182.9 cm; Wt 114.1 kg
--- NOTE | 2019-01-14 16:35 | NUR ---
1500 DENIES PROBLEMS WITH TRANSFUSION, IV SITE PATENT, RATE INCREASED TO 250/CC/HR DRINKING COLA. AT SIDE DISCUSSED CAUSES OF ANEMIA. 1600 BLOOD COMPLETED, DENIES PROBLEMS, LINE BEING FLUSHED WITH NS. 1630 LINE FLUSHED, IV DC'D WITH CATH INTACT. DENIES PROBLEMS WITH TRANSFUSION. UP TO BR VOIDS LG AMT. 1635 PT. DECLINED OFFER OF WC, RELEASED AMB.
== END 2019-01-14 16:35 | disposition home or self-care (01) ==
LOC: D.OPS 12:22
PROVIDERS: ATTEND Internal Medicine Medical Oncology
DX: D51.9 Vitamin B12 deficiency anemia, unspecified (principal); D63.1 Anemia in chronic kidney disease; D61.818 Other pancytopenia

== ENCOUNTER → 2019-03-18 07:46 | Outpatient (CLI) | payer MEDICARE ==
[2019-01-14 14:59] VITALS: BMI 34.1
[2019-03-18 08:41] LABS: ALBUMIN 4.2 g/dL (3.4-5.0); BILIRUBIN - DIRECT 0.24 mg/dL (0.00-0.30); BILIRUBIN - INDIRECT 0.97 mg/dL (0.00-1.00); BILIRUBIN - TOTAL 1.21 mg/dL (0.2-1.3)
== END | disposition home or self-care (01) ==
LOC: D.US 07:46
PROVIDERS: ATTEND Internal Medicine Gastroenterology
DX: K76.0 Fatty (change of) liver, not elsewhere classified (principal)

== ENCOUNTER 2019-09-16 10:28 | Outpatient (CLI) | payer MEDICARE ==
[~2019-09-16] VITALS: Ht 182.9 cm; Wt 116.8 kg
[2019-09-16 12:35] VITALS: BP 99/52; Ht 182.9 cm; Wt 116.8 kg
== END 2019-09-16 15:40 | disposition home or self-care (01) ==
LOC: D.OPS 10:28
PROVIDERS: ATTEND Family Medicine
DX: D64.9 Anemia, unspecified (principal)

== ENCOUNTER 2019-09-25 14:29 | Inpatient (IN) | payer MEDICARE ==
[~2019-09-25] VITALS: Ht 182.9 cm; Wt 113.4 kg
--- NOTE | ~2019-09-25 | EC ---
PATIENT:ОЛЬГА IQABL DATE OF SERVICE: 09/25/19 SEX: M MEDICAL RECORD: [id number] DATE OF : [birth year] LOCATION:D.[facility] AGE OF PATIENT: 53 ADMISSION DATE: 09/25/19 REFERRING PHYSICIAN: INTERPRETING PHYSICIAN: OTONIEL AVILES MD ECHOCARDIOGRAM REPORT ECHO CHARGES 4 ECHO COMPLETE Date: 09/26/19 CLINICAL DIAGNOSIS: DYSPNEA/CARDIOMEGALY ECHOCARDIOGRAPHIC MEASUREMENTS (adult normal given) AC root (d.<3.7cm) 4.1 cm LV Septum d (<1.2 cm> 1.3 cm Valve Excursion 2.0 cm LV Septum (systole) 1.5 cm Left Atria (s.<4.0cm> 3.7 cm LVPW d(<1.2cm) 1.6 cm RV (d.<2.3cm) 5.8 cm LVPW (sytole) 1.7 cm LV diastole(<5.6CM) 5.1 cm MV E-F(>70mm/sec) cm LV systole 2.9 cm LVOT Diameter 2.4 cm MV exc.(>10mm) 1.7 cm Est.ejection fraction (50-75%) % DOPPLER: LVIT cm/sec A 64.0 cm/sec E 89.0 cm/sec LA cm/sec RVSP 54 mmHg LVOT 90 cm/sec AOP1/2T m/s Asc. Ao 140 cm/sec RVOT 92 cm/sec RA cm/sec PA 111 cm/sec AV Gradient Peak 7.89 mmHg AV Mean 4.70 mmHg AV Area 2.6 cm MV Gradient Peak 3.29 mmHg MV Mean 2.05 mmHg MV Area cm COMMENTS: Utilities Equipment Repairer: 2 JANE SURESH Care Management Specialist: Anna Aviles TAPE# PACS Pericardial Effusion N DATE OF SERVICE: INDICATION: Left ventricle is hyperdynamic, ejection fraction 70%. There is mild concentric left ventricular hypertrophy. FINDINGS: Left atrium is normal size and function. Aortic valve is normal. Mitral valve is normal. ECHOCARDIOGRAM REPORT [id number] ОЛЬГА IQBAL Tricuspid valve has mild tricuspid regurgitation with elevated right ventricular systolic pressures at 54 mmHg. Right ventricle is severely enlarged at 5.8 cm. The right atrium is severely enlarged. Pericardium is normal. Pulmonic valve is normal. IMPRESSION: The patient has hyperdynamic LV systolic function with elevations in the pulmonary pressures consistent with moderate pulmonary hypertension and also enlargement of the right ventricle. TRANSINT:[id number] Voice Confirmation ID: [id number] DOCUMENT ID: [id number] OTONIEL AVILES MD CC: [id number] DICTATION DATE: 09/27/19 1144 JET ENGINE MECHANIC: 09/27/19 1309 ADM IN [facility] [address] [place] [id number]
[2019-09-25 15:00] VITALS: BP 97/57
--- NOTE | 2019-09-25 15:22 | NUR ---
PATIENT IN WITH C/O SOB AND WEAKNESS, X 2 WEEKS HAS GOTTEN WORSE, HAD BLOOD TRANSFUSION 2 UNITS 2 WEEKS AGO AND USUSALLY GETS STRONGER AFTER BUT HASN'T THIS TIME. A+O X3. CALL LIGHT WITHIN REACH
[2019-09-25 15:57] LABS: MCH 33.5 pg (26.0-34.0); MCHC 32.9 g/dL (31.0-37.0); MCV 101.9 fL (80.0-100.0); MEAN PLATELET VOLUME 9.1 fL (7.4-10.4); RBC 2.06 10x6/uL (4.20-6.10); RDW 19.8 % (11.5-14.5)
[2019-09-25 16:00] VITALS: BP 118/71
[2019-09-25 16:04] LABS: CALC OSMOLALITY 257 mosm/kg (275-300); CARBON DIOXIDE 21.3 mmol/L (21.0-32.0); CHLORIDE - SERUM 96 mmol/L (98-107); GLUCOSE 95 mg/dL (74-106); POTASSIUM - SERUM 4.2 mmol/L (3.5-5.1); SODIUM 128 mmol/L (136-145); UREA NITROGEN 16 mg/dL (7-18); eGFR NON AFRICAN AMERICAN 83 mL/min (90-120)
[2019-09-25 16:14] LABS: HEMOGLOBIN 6.9 g/dL (13.5-17.5); PLATELET COUNT 148 10x3/uL (130-400); WBC 1.8 10x3/uL (4.8-10.8)
[2019-09-25 16:19] LABS: INR 1.32 (0.85-1.17); PROTIME 16.3 SECONDS (11.6-15.0)
[2019-09-25 16:20] LABS: APTT 38.3 SECONDS (22.8-39.4)
[2019-09-25 16:21] LABS: D-DIMER-QUANTITATIVE 0.8 ug/mLFEU (0.20-0.54)
[2019-09-25 16:27] LABS: ALBUMIN 2.3 g/dL (3.4-5.0); ALKALINE PHOSPHATASE 39 U/L (30-120); ALT (SGPT) 16 U/L (10-68); BILIRUBIN - TOTAL 1.34 mg/dL (0.2-1.3); CKMB 1.1 U/L (0.0-3.6); CREATINE KINASE 35 UL (21-232); PRO BNP 7100 pg/mL (0-125); PROTEIN - SERUM 5.8 g/dL (6.4-8.2)
[2019-09-25 17:00] VITALS: BP 116/65
[2019-09-25 18:02] VITALS: BP 103/59
[2019-09-25 18:10] LABS: BILIRUBIN NEGATIVE (NEGATIVE); GLUCOSE NEGATIVE (NEGATIVE); KETONE NEGATIVE (NEGATIVE); NITRITE NEGATIVE (NEGATIVE); UROBILINOGEN NORMAL (NORMAL)
[2019-09-25 18:26] LABS: LYMPHOCYTES 12 % (15-50); NEUTROPHILS 88 % (40-80); PLATELET ESTIMATE NORMAL
--- NOTE | 2019-09-25 19:03 | NUR ---
BLOOD INFUSION BEGAN AT 1840, CALL LIGHT WITHIN REACH, VITAL SIGNS STABLE,MTOLERATING WELL AT THIS TIME.
--- NOTE | 2019-09-25 19:13 | NUR ---
ATTEMPTED TO CALL REPORT, NO ANSWER
--- NOTE | 2019-09-25 19:21 | NUR ---
ATTEMPTED TO CALL REPORT NO ANSWER.
--- NOTE | 2019-09-25 19:22 | NUR ---
ATTEMPTED TO CALL REPORT AND WAS PUT ON HOLD, WILL TRY BACK
[2019-09-25 19:27] LABS: CKMB 0.9 U/L (0.0-3.6); CREATINE KINASE 34 UL (21-232)
[2019-09-25 19:29] LABS: TROPONIN-I 0.166 ng/mL (0.000-0.060)
--- NOTE | 2019-09-25 19:31 | NUR ---
ALLY GRAHAM FROM MED I, STATED THEY WEREN'T ABLE TAKE PATIENT WITH HIM PENDING COVID RESULTS FROM HIS DOCTOR. HOME AND FAMILY LIVING PROFESSOR CALLED.
--- NOTE | 2019-09-25 19:45 | NUR ---
2ND UNIT OF PRBC STARTED AT 1944
--- NOTE | 2019-09-25 19:59 | NUR ---
ATTEMPTED TO CALL REPORT, I WAS PLACED ON HOLD, WILL TRY BACK.
--- NOTE | 2019-09-25 20:18 | NUR ---
ATTEMPTED TO CALL REPORT, STAYED ON HOLD.
--- NOTE | 2019-09-25 20:18 | NUR ---
PATIENT HAVING SOME INCONTIENCE OF STOOL, USING BSC, PATIENT CLEANED UP, STATES IT COMES WITHOUT WARNING.
[2019-09-25 21:18] VITALS: BP 98/55
[2019-09-25] MEDS ORDERED: TREXALL10 MG PO (22:43)
[2019-09-25] MEDS ORDERED: HUMIRA (22:45)
[2019-09-25 23:05] VITALS: BP 98/55; BMI 34.0
[2019-09-26 00:49] VITALS: BP 97/62
[2019-09-26 05:59] VITALS: BP 113/64
[2019-09-26 07:18] LABS: BASOPHILS 0.1 % (0-2); EOSINOPHILS 1.2 % (0-7); HEMATOCRIT 29.4 % (42.0-54.0); HEMOGLOBIN 9.8 g/dL (13.5-17.5); IMMATURE GRANULOCYTES 0.7 % (0-5); LYMPHOCYTES 6.2 % (15-50); MCH 32.5 pg (26.0-34.0); MCHC 33.3 g/dL (31.0-37.0); MCV 97.4 fL (80.0-100.0); MEAN PLATELET VOLUME 9.3 fL (7.4-10.4); MONOCYTES 3.6 % (2-11); NEUTROPHILS 88.2 % (40-80); PLATELET COUNT 144 10x3/uL (130-400); RBC 3.02 10x6/uL (4.20-6.10); RDW 22.1 % (11.5-14.5); WBC 6.9 10x3/uL (4.8-10.8)
[2019-09-26 07:42] LABS: CALC OSMOLALITY 263 mosm/kg (275-300); CALCIUM 8.4 mg/dL (8.5-10.1); CARBON DIOXIDE 19.9 mmol/L (21.0-32.0); CHLORIDE - SERUM 100 mmol/L (98-107); CKMB 0.7 U/L (0.0-3.6); CREATINE KINASE 33 UL (21-232); CREATININE - SERUM 1.1 mg/dL (0.6-1.3); GLUCOSE 93 mg/dL (74-106); PHOSPHOROUS 2.3 mg/dL (2.5-4.9); POTASSIUM - SERUM 3.6 mmol/L (3.5-5.1); SODIUM 131 mmol/L (136-145); UREA NITROGEN 14 mg/dL (7-18); eGFR NON AFRICAN AMERICAN 74 mL/min (90-120)
[2019-09-26 07:45] LABS: TROPONIN-I 0.214 ng/mL (0.000-0.060)
[2019-09-26 08:39] VITALS: BMI 33.9
[2019-09-26 08:41] VITALS: BP 134/74
--- NOTE | 2019-09-26 09:00 | NUR ---
PT RECIEVED BREAKFAST TRAY AFTER OKAYED BY DR. AVILES. SITTING UP IN BED, RR EVEN AND UNLABORED. PAIN MEDICATION RECIEVEDPER ORDERS. DENIES FURTHER NEEDS AT THIS TIME. ASSESSMENT COMPLETE. CALL LIGHT WITHIN REACH. BED IN LOWEST POSITION. WILL CONTINUE TO MONITOR.
--- NOTE | 2019-09-26 09:18 | NUR ---
NOTIFIED DR JAMIL WITH ONCOLOGY OF CONSULT.
[2019-09-26 11:07] VITALS: Ht 182.9 cm; Wt 113.4 kg
[2019-09-26 11:28] VITALS: BP 120/73
[2019-09-26 13:30] LABS: HEMATOCRIT 31.1 % (42.0-54.0); HEMOGLOBIN 10.3 g/dL (13.5-17.5)
--- NOTE | 2019-09-26 13:46 | NUR ---
report given to SANTOS pennington. pt left via wheelchair with all belongings to room 6635
--- NOTE | 2019-09-26 13:52 | NUR ---
PT RECEIVED TO ROOM 2207 VIA W/C. RESP UNLABORED. SALINE LOC TO LEFT AC, INTACT WITHOUT REDNESS OR EDEMA. SCABS NOTED TO KNUCKLES OF BILATERAL HANDS. ORIENTED TO ROOM, BED AND CALL LIGHT. CALL LIGHT WITHIN REACH. ENCOURAGED TO CALL WITH NEEDS.
[2019-09-26 14:36] LABS: ERYTHROCYTE SEDIMENTATION RATE 87 mm/hr (0-20)
[2019-09-26 14:37] LABS: C-REACTIVE PROTEIN 37.1 mg/dL (0.0-0.9)
[2019-09-26 16:00] VITALS: BP 103/62
[2019-09-26 17:26] LABS: HEMOGLOBIN 9.9 g/dL (13.5-17.5)
--- NOTE | 2019-09-26 19:00 | NUR ---
BEDSIDE REPORT RECEIVED AND CARE OF PT ASSUMED. PT LYING ON LEFT SIDE WITH EYES CLOSED. IV TO LEFT AC SALINE LOCKED. WILL MONITOR FOR NEEDS.
[2019-09-26 19:43] VITALS: BP 106/69
--- NOTE | 2019-09-26 20:46 | NUR ---
HS MEDICATIONS GIVEN TO INCLUDE MORPHINE 2 MG IVP PER REQUEST FOR PAIN, PER PRN ORDER. WILL CONTINUE TO MONITOR FOR NEEDS.
--- NOTE | 2019-09-26 21:12 | NUR ---
CALLED BANDMILL OPERATOR TO GET EPOETIN PER ORDER...RECEIVED AND GIVEN VIA SUBCUTANEOUS INJECTIONS.
[2019-09-27] VITALS: BP 97/55
[2019-09-27 04:00] VITALS: BP 113/67
--- NOTE | 2019-09-27 04:35 | NUR ---
COLLECTED URINE FOR ORDERED STUDIES AND DELIVERED TO EPIC PRELUDE ANALYST.
--- NOTE | 2019-09-27 05:00 | NUR ---
INCENTIVE INSPIROMETER PROVIDED TO PT AND TEACHING PERFORMED ON USE.
--- NOTE | 2019-09-27 05:38 | NUR ---
RESPIRATORY SAMPLE COLLECTED FOR ORDERED CULTURE AND DELIVERED TO LAB.
[2019-09-27 06:26] LABS: BASOPHILS 0.1 % (0-2); EOSINOPHILS 0.4 % (0-7); HEMATOCRIT 30.6 % (42.0-54.0); HEMOGLOBIN 10.1 g/dL (13.5-17.5); MCH 32.5 pg (26.0-34.0); MCV 98.4 fL (80.0-100.0); MEAN PLATELET VOLUME 10.1 fL (7.4-10.4); MONOCYTES 4.2 % (2-11); NEUTROPHILS 86.3 % (40-80); PLATELET COUNT 151 10x3/uL (130-400); RBC 3.11 10x6/uL (4.20-6.10); RDW 22.1 % (11.5-14.5); WBC 7.5 10x3/uL (4.8-10.8)
[2019-09-27 07:02] LABS: ALBUMIN 2.6 g/dL (3.4-5.0); ANION GAP 16.3 mmol/L (8-16); BILIRUBIN - TOTAL 1.6 mg/dL (0.2-1.3); CALCIUM 8.5 mg/dL (8.5-10.1); CARBON DIOXIDE 19.5 mmol/L (21.0-32.0); CREATININE - SERUM 1.1 mg/dL (0.6-1.3); MAGNESIUM - SERUM 2.2 mg/dL (1.8-2.4); POTASSIUM - SERUM 3.8 mmol/L (3.5-5.1); PROTEIN - SERUM 6.5 g/dL (6.4-8.2)
--- NOTE | 2019-09-27 07:32 | NUR ---
PT UP TO SIDE OF BED, ALERT AND ORIENTED. IV LOCATED TO LEFT AC CURRENTLY SL. NO S/S OF DISTRESS AT THIS TIME, DENIES ANY NEEDS AT THIS TIME, WILL CONT TO MONITOR.
[2019-09-27 08:03] VITALS: BP 110/70
--- NOTE | 2019-09-27 13:02 | NUR ---
IV TO LEFT AC OUT, CATHETER INTACT, NEW IV PLACED TO RIGHT FOREARM.
[2019-09-27 13:03] VITALS: BP 111/63
--- NOTE | 2019-09-27 17:25 | NUR ---
PT HAS REFUSED TO CONTINUE TO WEAR HEART MONITOR, RETURNED TO NURSE SUBSTANCE ABUSE.
[2019-09-27 17:32] VITALS: BP 125/65
--- NOTE | 2019-09-27 19:00 | NUR ---
BEDSIDE REPORT RECEIVED AND CARE OF PT ASSUMED. PT LYING IN HIGH STEEN'S POSITION WATCHING TV. IV TO RIGHT FA SALINE LOCKED. IS AND FLUTTER AT BEDSIDE AND PT REPORTS COMPLIANCE WITH USE. WILL MONITOR FOR NEEDS.
[2019-09-27 20:00] VITALS: BP 111/68
--- NOTE | 2019-09-27 21:10 | NUR ---
HS MEDICATIONS GIVEN TO INCLUDE MORPHINE IVP PER PT REQUEST FOR PAIN. WILL CONTINUE TO MONITOR FOR NEEDS.
[2019-09-28] VITALS: BP 107/64
[2019-09-28 04:00] VITALS: BP 99/55
[2019-09-28 04:49] LABS: HEMATOCRIT 29.4 % (42.0-54.0); HEMOGLOBIN 9.6 g/dL (13.5-17.5); MCH 32.2 pg (26.0-34.0); MCHC 32.7 g/dL (31.0-37.0); MCV 98.7 fL (80.0-100.0); MEAN PLATELET VOLUME 9.7 fL (7.4-10.4); PLATELET COUNT 157 10x3/uL (130-400); RBC 2.98 10x6/uL (4.20-6.10); RDW 21.9 % (11.5-14.5); WBC 6.8 10x3/uL (4.8-10.8)
[2019-09-28 05:16] LABS: CALCIUM 8.6 mg/dL (8.5-10.1); CARBON DIOXIDE 20.2 mmol/L (21.0-32.0); CREATININE - SERUM 1.1 mg/dL (0.6-1.3); MAGNESIUM - SERUM 2.6 mg/dL (1.8-2.4); PHOSPHOROUS 3.3 mg/dL (2.5-4.9)
[2019-09-28 05:27] LABS: POTASSIUM - SERUM 3.2 mmol/L (3.5-5.1)
[2019-09-28 08:02] VITALS: BP 108/72
--- NOTE | 2019-09-28 10:32 | NUR ---
HE IS ASKING ABOUT SOMETHING FOR HIS HANDS, THEY HAVE SCABS ON THEM. PRN GIVEN FOR PAIN RATES PAIN 7/10.
[2019-09-28 11:45] VITALS: BP 112/63
[2019-09-28 12:44] LABS: LYMPHOCYTES 18 % (15-50); MONOCYTES 12 % (2-11); NEUTROPHILS 66 % (40-80); PLATELET ESTIMATE NORMAL; ROULEAUX OCC
--- NOTE | 2019-09-28 13:27 | NUR ---
Nutrition follow-up: Diet: Low sodium PO intake 75-100% of meals Labs reviewed Pt requested information on Low sodium diet. RDN visited with pt about diet. Due to pt with RA on methotrexate, RDN also discussed decreasing high CHO intake, sugar intake and night shade vegetable intake. Provided pt with printed diet information and RDN name and phone number. RDN following.
--- NOTE | 2019-09-28 15:20 | NUR ---
DR. MEEHAN PHONED TO SAY THAT MR. IQBAL IS OK TO DISCHARGE FOR HIS STANDPOINT.
[2019-09-28] MEDS ORDERED: OMNICEF300 MG PO (16:47)
[2019-09-28] MEDS ORDERED: ZITHROMAX500 MG PO (16:47)
[2019-09-28] MEDS ORDERED: STERAPRED DS 1010 MG PO (16:48)
[2019-09-28 16:49] VITALS: BP 127/76
[2019-09-28] MEDS ORDERED: PROTONIX40 MG PO (16:49)
[2019-09-28] MEDS ORDERED: IPRAT-ALBUT 0.5-3 ML UPD (16:50)
[2019-09-28] MEDS ORDERED: SINGULAIR10 MG PO (16:50)
[2019-09-28] MEDS ORDERED: FLUTICASONE PRO16 GM NASAL (16:51)
[2019-09-28] MEDS ORDERED: TESSALON PERLE100 MG PO (16:51)
--- NOTE | 2019-09-28 18:19 | NUR ---
IV REMOVED, PAPERWORK GONE OVER WITH, QUESTIONS ANSWERED. TAKEN TO THE ER VIA WHEELCHAIR.
[2019-09-29 10:09] LABS: ANA REFLEX - DIRECT Negative (Negative)
[2019-09-30 11:09] LABS: ANGIOTENSIN CONVERTING ENZYME 29 U/L (14-82)
[2019-09-30 18:08] LABS: IMMUNOGLOBULIN E 10 IU/mL (6-495)
[2019-09-30 22:06] LABS: MYCOPLASMA PNEUMO IGG 440 U/mL (0-99)
== END 2019-09-28 18:31 | disposition home or self-care (01) | DRG 193 ==
LOC: D.ER 14:29 → D.M2 17:39 → D.MS 17:39 → D.M2 19:40 → D.MS 09-26 13:48
PROVIDERS: Emergency Medicine; Internal Medicine Hematology & Oncology; Internal Medicine Pulmonary Disease; ADMIT Family Medicine; ATTEND Family Medicine
DX: J18.9 Pneumonia, unspecified organism (principal); I50.31 Acute diastolic (congestive) heart failure; E87.1 Hypo-osmolality and hyponatremia; I24.8 Other forms of acute ischemic heart disease; I11.0 Hypertensive heart disease with heart failure; K21.9 Gastro-esophageal reflux disease without esophagitis; D53.9 Nutritional anemia, unspecified; J84.89 Other specified interstitial pulmonary diseases; M06.9 Rheumatoid arthritis, unspecified; I48.91 Unspecified atrial fibrillation

== ENCOUNTER → 2020-01-15 10:12 | Outpatient (CLI) | payer MEDICARE ==
[2019-09-26 11:07] VITALS: BMI 33.9
[~2020-01-15 10:12] MED LIST changes: +FLUTICASONE PRO16 GM NASAL; +IPRAT-ALBUT 0.5-3 ML UPD; +OMNICEF300 MG PO; +PROTONIX40 MG PO; +SINGULAIR10 MG PO; +STERAPRED DS 1010 MG PO; +TESSALON PERLE100 MG PO; +TREXALL10 MG PO; +ZITHROMAX500 MG PO
== END | disposition home or self-care (01) ==
LOC: D.LAB 10:12
PROVIDERS: ATTEND Internal Medicine Pulmonary Disease
DX: J84.9 Interstitial pulmonary disease, unspecified (principal)

== ENCOUNTER → 2020-01-18 07:22 | Outpatient (CLI) | payer MEDICARE ==
[2019-09-26 11:07] VITALS: BMI 33.9
== END | disposition home or self-care (01) ==
LOC: D.RT 07:22
PROVIDERS: ATTEND Internal Medicine Pulmonary Disease
DX: J84.9 Interstitial pulmonary disease, unspecified (principal)